=== PATIENT | female | born 1950 | race Caucasian/White ===

== ENCOUNTER 2017-07-05 11:27 | Inpatient (IN) | payer MEDICARE, SELFPAY | END 2017-07-06 14:59 | disposition home or self-care (01) | DRG 473 | PROVIDERS: Admitting Provider Orthopaedic Surgery Orthopaedic Surgery of the Spine; PCP Internal Medicine; Visit Provider Orthopaedic Surgery Orthopaedic Surgery of the Spine | DX: M48.02 Spinal stenosis, cervical region (principal); M47.22 Other spondylosis with radiculopathy, cervical region; G25.81 Restless legs syndrome | CPT/HCPCS: 72040; 76001; 85027; 94762; 97116; 97161; 97165; C1776; J0131; J0690; J1100; J2060; J2270; J2405; J2704; J3010; J3410 ==